=== PATIENT | female | born 1975 | race Asian ===

== ENCOUNTER → 2017-08-01 18:21 | Outpatient (CLI) | payer MEDICAID, SELFPAY ==
--- NOTE | 2017-08-01 13:45 | ASPS_PTH ---
PATIENT: RAJIV IVORY [facility] U#:[id number] AGE/SX: 49/F ROOM: RE08/01/[address]: Dr. Bronson Palacios MD : 1975 BED: DIS: SPEC #: [id number] RECD: 08/02/17 10:56 STATUS: ROBYN REShayna #: [id number] SIENA: 08/01/17 13:[address]: Bronson Palacios DEPT: CYTOLOGY RECD BY: Mark Givens ENTERED: 08/02/17 10:56 SP TYPE: ASPIRATION OTHR DR: Radha Mack, [employer] LEAD-C Tissues: Thyroid gland, NOS Procedures: Pap Stain (control) Special Stain Group II Cytology Other HEADER OPERATION: Ultrasound-guided fine needle aspiration left thyroid PRE-OP DIAGNOSIS: Multinodular goiter E04.2 TISSUE SUBMITTED: Fine needle aspiration left thyroid (12 slides) DIAGNOSIS CYTOLOGY Left thyroid nodule, ultrasound-guided FNA (smears): Malignant cells present 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 The specimen is adequate for evaluation. SJ:rg 08/03/17 COMMENT Correlation with clinical, radiologic findings and appropriate follow up are necessary. CYTOLOGY STUDY Slides are reviewed. CYTOLOGY GROSS Received are 12 smears labeled with the patient's name and designated per the requisition as left thyroid. Submitted for staining. / 08/02/17 TC:0 CPT: 92619
== END ==
PROVIDERS: Visit Provider Surgery
DX: E04.2 Nontoxic multinodular goiter (principal)
CPT/HCPCS: 88161; 88313

== ENCOUNTER 2017-08-22 10:27 | Day surgery (SDC) | payer MEDICAID, SELFPAY ==
[2017-08-22] VITALS (8 sets, daily range): BP systolic 114–148; BP diastolic 80–90; PULSE 64–92; RESP 14–18; TEMP 36.1–36.9; O2SAT 98–100; BMI 23.4
--- NOTE | 2017-08-22 | THYROID_PTH ---
PATIENT: RAJIV IVORY LOC: [facility] U#:[id number] AGE/SX: 42/F ROOM: RE08/22/[address]: Dr. Bronson Palacios MD : 1975 BED: DIS: 08/23/2017 SPEC #: [id number] RECD: 08/22/17 14:29 STATUS: ROBYN SURAJ #: [id number] SIENA: 08/22/17 00:[address]: Bronson Palacios DEPT: SURGICAL PATHOLOGY RECD BY: Mark Givens ENTERED: 08/22/17 14:29 SP TYPE: THYROID OTHR DR: Radha Mack, TRANSMISSION SPECIALIST-C Tissues: Thyroid gland, NOS Procedures: Surgery Specimen Level V HEADER OPERATION: Total thyroidectomy PRE-OP DIAGNOSIS: Papillary thyroid carcinoma TISSUE SUBMITTED: Thyroid, suture in left lobe MICROSCOPIC DIAGNOSIS Thyroid, thyroidectomy: Papillary thyroid carcinoma. See cancer checklist below. AM:ras 08/24/17 COMMENT THYROID CANCER SUMMARY: Procedure ? total thyroidectomy Specimen integrity - intact Specimen size ? right lobe 4.5 x 2 x 1 cm, left lobe 3.6 x 1.6 x 0.9, isthmus 2 x 0.5 x 0.5 cm Specimen weight ? 99 gm Tumor focality ? multifocal (left lobe and isthmus and right lobe) Dominant tumor: Tumor laterality - bilateral Tumor size ? largest tumor 1.5 x 1 x 0.5 cm, smaller tumor 3 x 2 x 2 mm Histologic type ? papillary carcinoma Variant - classical Architecture - follicular Cytomorphology - classical Margins ? uninvolved by carcinoma Largest tumor is present at <1 mm from its closest (posterior) margin of excision. Smaller tumor is located <1 mm from its closest (anterior) margin of excision. Tumor capsule - none Tumor capsular invasion ? not applicable Lymph-Vascular invasion ? not identified Extrathyroidal extension ? not identified Lymph nodes ? 2 out of 2 lymph nodes negative for metastatic carcinoma PATHOLOGIC STAGE: pT1b N0 Mx The above summary is in compliance with [employer] (CAP) Cancer Protocols Checklist and [place] [employer] on Cancer (AJCC), Staging Manual, 8th Ed. Two foci of papillary thyroid carcinoma with classical cytomorphology and follicular architecture are present. The larger tumor is present in the isthmus and extends into the left lobe. The smaller tumor measures 3 mm and is present in the right lobe. Case has been reviewed in consultation with Dr. Manriquez who concurs with the above diagnosis. IDC:SJ MICROSCOPIC DESCRIPTION Slides are reviewed. GROSS DESCRIPTION Received in fixative is one container labeled with the patient's name and designated thyroid, suture in left lobe. The specimen consists of a total thyroidectomy specimen weighing 9 gm. No external parathyroid tissue is identified. The specimen is oriented with suture in left lobe. The isthmus appears to be partly disrupted. The right lobe measures 4.5 x 2 x 1 cm and the left lobe measures 3.6 x 1.6 x 0.9 cm and the isthmus measures 2 x 0.5 x 0.5 cm. The specimen is inked as follows: posterior surface, right lobe, left lobe and isthmus ? black, anterior surface, right lobe ? blue, anterior surface, left lobe ? green and isthmus, anterior surface isthmus ? yellow. Sections of the isthmus reveal a maynard, solid nodule measuring 1.5 x 1 x 0.5 cm with solid nodule also extending into the lower portion of the left lobe. Sections of the rest of the left lobe do not reveal any mass lesion. Sections of the right lobe reveal a maynard, solid nodule in the lower portion of the lobe measuring 0.3 cm in greatest dimension. The entire specimen is submitted in ten cassettes as follows: 1 & 2 ? isthmus, 3-5 ? left lobe (3 containing most superior portion and 5 containing most inferior portion), 6-10 ? right lobe (6 containing most superior portion and 10 containing most inferior portion including one small nodule). / INDY:ras 08/23/17 TC:0 [facility]: [id number]
[2017-08-22 10:54] LABS: Internal QC Validated? YES +Cl - CLEAR BKGD; Pregnancy, Urine Negative Negative
[2017-08-22] MEDS: Cefazolin 2 GM in 0.9% Normal Saline 100 ML IV (12:20)
--- NOTE | 2017-08-22 13:28 | PCM.OPRPT ---
Problem List (1) Papillary thyroid carcinoma Status: Acute Report of Operation Date of Procedure: 08/22/17 Pre-Operative Diagnosis: c73 papillary thyroid cancer Post-Operative Diagnosis: Same Surgery/Procedure Performed:: [id number] total thyroidectomy with limited central node dissection Type of Anesthesia:: General Anesthesiologist: Bhavik Sanchez Specimen's removed: Total thyroid with central lymph nodes Estimated Blood Loss (mL): 25 cc Description of Procedure: Patient was brought into the operating room. Placed in the supine position. Under excellent general endotracheal intubation towel was placed underneath the shoulder blades and the neck was extended. The neck was then sterilely prepped and draped in the usual fashion. Exparel was injected into the neck in a cervical incision was made. Subplatysmal flaps were created with use of electrocautery. Gelpi retractor was placed inside the wound. Midline strap muscles were then opened and started on the right side detaching the strap muscles off of the thyroid gland itself I started inferiorly and went to the inferior pole vessels took these down with a harmonic dissector went to the middle thyroidal vein and took this down with a harmonic dissector and then spent quite a bit of dissecting up in the superior pole vessels this did take quite a bit of time to remove them with the harmonic dissector throughout this dissection I was able to identify the superior and inferior parathyroid glands as well as the recurrent laryngeal nerve I dissected the soft use a harmonic dissector to take the gland off of Hughes's ligament and then rotated the gland from lateral to medial standpoint off of the trachea to the left side. In similar fashion I went to the inferior pole vessels took these down with harmonic dissector and the process identifying the inferior parathyroid glands and then went superiorly and took out to lymph nodes from the central compartment and then went to the superior pole vessels and took these down with a harmonic dissector without difficulty I rotated the gland from lateral medial standpoint identified in the middle thyroidal vein and took this down with harmonic dissector and then finally rotated the gland off of Hughes's ligament this process I did not identify the recurrent laryngeal nerve inspected the gland nothing look like parathyroid tissue and marked the gland with a single suture in the right thyroid lobe. I inspected both thyroid beds as well as the middle compartment I did not see any other tissue that looked like thyroidal or lymphatic in nature I placed 2 pieces of Surgicel into the wound. These went on both sides of the thyroid bed had excellent hemostasis midline strap muscles were brought together with a 2-0 Vicryl. Rest of the Exparel was injected subcutaneously. Suboptimal flaps were brought together with a 3-0 Vicryl running 4-0 Monocryl on the skin and Dermabond was applied sterile dressings were applied and the patient tolerated the procedure well. - Admit VTE Documentation VTE Present on Admission: No VTE Mechan Device Prophylaxis: SCD's VTE Pharm Prophylaxis ordered?: No Reason prophylaxis not ordered:: Treatment Not Indicated
[2017-08-22] MEDS: BUPIVACAINE LIPOSOME/PF 20 ML VIAL OPERA.SITE (13:29)
[2017-08-22] MEDS: oxyCODONE 5 MG Tablet PO ×2 (15:17→21:01)
[2017-08-22] MEDS: Ondansetron 4 MG/2 ML Vial IV (16:19)
[2017-08-22 16:55] LABS: Calcium,Total 8.1 mg/dL (8.5-10.1)
[2017-08-22] MEDS: Calcium Carbonate 500 MG Tablet 1000 MG PO (17:55)
[2017-08-22] MEDS: HYDROmorphone 1 MG/ML Syringe IV (18:03)
[2017-08-23] MEDS: Lactated Ringers 1,000 ML 75 ML IV (01:01)
[2017-08-23 02:00] VITALS: BP 124/75; PULSE 84; RESP 16; TEMP 36.5; O2SAT 99
[2017-08-23] MEDS: Levothyroxine 100 MCG Tablet PO (06:03)
[2017-08-23] MEDS: oxyCODONE 5 MG Tablet PO ×2 (06:03→10:21)
[2017-08-23 06:49] LABS: Calcium,Total 8.9 mg/dL (8.5-10.1)
--- NOTE | 2017-08-23 07:21 | PCM.DC.GS ---
Discharge Diet: Light diet - advance as tolerated Discharge Activity: May Not Drive - No driving for 1 week or while taking narcotic pain meds. Lifting Restrictions: 10 pounds Call your doctor if your incision/area has: Continuous Slow Oozing, Sudden Increased Bleeding, Increased Pain/ Swelling, Increased Redness, Foul Smelling Discharge, Swelling at the incision site Suture Line Care: Avoid Pulling/Pushing, Avoid Pinching/Bending Cleanse incision/area with: Soap & Water Additional Instructions: Start to take levothyroxine 1 tablet daily. You will need to take this tablet 1 hour prior to eating, drinking and other medications Your TSH will be rechecked in 6 weeks from the surgery Your calcium level today was 8.9 (normal range) You will also start to take TUMS 2 tablets twice a day for 14 days I will also have you on Rocaltrol 1 tablet daily for 14 days The TUMs and Rocaltrol will need to be taken at least an hour away from the levothyroxine Allergies/Adverse Reactions: Allergies No Known Allergies Allergy (Verified 08/15/17 08:32) Medications to take at Discharge Multivit with Calcium,Iron,Min [Multiple Vitamins For Women] 1 each PO DAILY 08/15/17 Oxycodone HCl/Acetaminophen [Percocet 5/325] 1 - 2 tab PO Q4H PRN PRN 4 Days #30 tab 08/22/17 Calcitriol [Rocaltrol] 0.25 mcg PO DAILY #14 cap 08/23/17 Levothyroxine [Synthroid] 100 mcg PO DAILY@0600 #30 tab 08/23/17 The following prescriptions were given: Oxycodone HCl/Acetaminophen [Percocet 5/325] 1 - 2 tab PO Q4H PRN PRN 4 Days #30 tab PRN Reason: Pain Calcitriol [Rocaltrol] 0.25 mcg PO DAILY #14 cap Levothyroxine [Synthroid] 100 mcg PO DAILY@0600 #30 tab Primary Care Physician: Radha Mack NP-C [Primary Care Provider] - Please Follow Up With: Bronson Palacios MD - [phone] When: 10 days Proposed Discharge Date: 08/23/17
[2017-08-23 07:25] VITALS: BP 117/77; PULSE 84; RESP 18; TEMP 36.7; O2SAT 95
--- NOTE | 2017-08-23 07:26 | DCINST_ITS ---
Discharge Diet: Light diet - advance as tolerated Discharge Activity: May Not Drive - No driving for 1 week or while taking narcotic pain meds. Lifting Restrictions: 10 pounds Call your doctor if your incision/area has: Continuous Slow Oozing, Sudden Increased Bleeding, Increased Pain/ Swelling, Increased Redness, Foul Smelling Discharge, Swelling at the incision site Suture Line Care: Avoid Pulling/Pushing, Avoid Pinching/Bending Cleanse incision/area with: Soap & Water Additional Instructions: Start to take levothyroxine 1 tablet daily. You will need to take this tablet 1 hour prior to eating, drinking and other medications Your TSH will be rechecked in 6 weeks from the surgery Your calcium level today was 8.9 (normal range) You will also start to take TUMS 2 tablets twice a day for 14 days I will also have you on Rocaltrol 1 tablet daily for 14 days The TUMs and Rocaltrol will need to be taken at least an hour away from the levothyroxine Allergies/Adverse Reactions: Allergies No Known Allergies Allergy (Verified 08/15/17 08:32) Medications to take at Discharge Multivit with Calcium,Iron,Min [Multiple Vitamins For Women] 1 each PO DAILY 12/26 Oxycodone HCl/Acetaminophen [Percocet 5/325] 1 - 2 tab PO Q4H PRN PRN 4 Days # 30 tab 08/22/17 Calcitriol [Rocaltrol] 0.25 mcg PO DAILY #14 cap 08/23/17 Levothyroxine [Synthroid] 100 mcg PO DAILY@0600 #30 tab 08/23/17 The following prescriptions were given: Oxycodone HCl/Acetaminophen [Percocet 5/325] 1 - 2 tab PO Q4H PRN PRN 4 Days # 30 tab PRN Reason: Pain Calcitriol [Rocaltrol] 0.25 mcg PO DAILY #14 cap Levothyroxine [Synthroid] 100 mcg PO DAILY@0600 #30 tab Primary Care Physician: Radha Mack NP-C [Primary Care Provider] - Please Follow Up With: Bronson Palacios MD - [phone] When: 10 days Proposed Discharge Date: 08/23/17
--- NOTE | 2017-08-23 07:26 | PCM.PN.SRG ---
Patient Problems: Active and Suspected Problems (Last Reviewed 08/08/17 @ 13:55 by Bronson Palacios MD) Papillary thyroid carcinoma (Acute) Subjective: Patient evaluated resting comfortably in bed. Patient notes sore throat. She notes minimal discomfort at the incision site. No perioral numbness/tingling. She denies nausea, vomiting. Her pain well controlled. - Physical Exam Neck: Supple, No JVD, Negative Carotid Bruits, - - Anterior neck incision- c/d/i. No erythema or infection noted. Vital Signs Temp Pulse Resp BP Pulse Ox 97.7 F L 84 16 124/75 H 99 08/23/17 02:00 08/23/17 02:00 08/23/17 02:00 08/23/17 02:00 08/23/17 02:00 Oxygen Delivery Method Room Air Weight: 119 lb 14.903 oz Body Mass Index (BMI) 23.4 Intake and Output for Last 24 Hours 08/21/17 08/22/17 08/23/17 23:59 23:59 23:59 Intake Total 1877 / 1877 1150 / 1150 Output Total 300 / 300 1000 / 1000 Balance 1577 / 1577 150 / 150 Laboratory Tests Past 24 Hrs 08/22/17 08/22/17 08/22/17 10:35 16:10 21:30 Calcium 8.1 L 8.0 L Urine Test Negative 08/23/17:18 Calcium 8.9 Urine Test Assessment/Plan Active and Suspected Problems (Last Reviewed 08/08/17 @ 13:55 by Bronson Palacios MD) Papillary thyroid carcinoma (Acute) I am following this patient in conjunction with Dr. Palacios S/p Total thyroidectomy Calcium level reviewed. Ready for discharge
--- NOTE | 2017-08-23 07:29 | PN.SURG_ITS ---
Patient Problems: Active and Suspected Problems (Last Reviewed 08/08/17 @ 13:55 by Bronson Palacios MD) Papillary thyroid carcinoma (Acute) Subjective: Patient evaluated resting comfortably in bed. Patient notes sore throat. She notes minimal discomfort at the incision site. No perioral numbness/tingling. She denies nausea, vomiting. Her pain well controlled. - Physical Exam Neck: Supple, No JVD, Negative Carotid Bruits, - - Anterior neck incision- c/d/ i. No erythema or infection noted. Vital Signs Temp Pulse Resp BP Pulse Ox 97.7 F L 84 16 124/75 H 99 08/23/17 02:00 08/23/17 02:00 08/23/17 02:00 08/23/17 02:00 08/23/17 02:00 Oxygen Delivery Method Room Air Weight: 119 lb 14.903 oz Body Mass Index (BMI) 23.4 Intake and Output for Last 24 Hours 08/21/17 08/22/17 08/23/17 23:59 23:59 23:59 Intake Total 1877 / 1877 1150 / 1150 Output Total 300 / 300 1000 / 1000 Balance 1577 / 1577 150 / 150 Laboratory Tests Past 24 Hrs 08/22/17 08/22/17 08/22/17 10:35 16:10 21:30 Calcium 8.1 L 8.0 L Urine Test Negative 08/23/17:18 Calcium 8.9 Urine Test Assessment/Plan Active and Suspected Problems (Last Reviewed 08/08/17 @ 13:55 by Bronson Palacios MD) Papillary thyroid carcinoma (Acute) I am following this patient in conjunction with Dr. Palacios S/p Total thyroidectomy Calcium level reviewed. Ready for discharge
[2017-08-23] MEDS: Calcium Carbonate 500 MG Tablet 1000 MG PO (07:38)
== END 2017-08-23 10:52 | disposition home or self-care (01) ==
LOC: SDC 10:28 → AC 10:30 → MS3 13:06
PROVIDERS: Anesthesiology; Family Provider Nurse Practitioner Family; PCP Nurse Practitioner Family; Visit Provider Surgery
PROC: (CPT 60252; principal; 2017-08-22 12:15)
DX: C73 Malignant neoplasm of thyroid gland (principal)
CPT/HCPCS: 00320; 60252; 36415; 81025; 82310; 88307; J7120; J2405

== ENCOUNTER → 2019-04-18 12:46 | Outpatient (CLI) | payer MEDICAID, SELFPAY ==
--- NOTE | 2019-04-18 12:48 | BI_ITS ---
MAMMOGRAPHY - BILATERAL SCREENING REASON FOR EXAM: Female, 43 years old. Routine annual screening examination. PERTINENT HISTORY: Non-contributory. TECHNIQUE: Digital bilateral breast tyler (3D mammographic acquisition) in the CC and MLO projections. 2-D mediolateral oblique (MLO) and craniocaudad (CC) views of both breasts were obtained. CAD: Full Field Digital Mammography with Computer Added Detection was performed. COMPARISON: None. Baseline examination. FINDINGS: Breast Composition: The breasts are heterogeneously dense, which may obscure small masses. There are no dominant masses or suspicious calcifications. No other significant abnormalities are identified. BI/SCREENING MAMM (CAD), BILAT IMPRESSION: Negative screening mammogram. Yearly followup mammogram recommended. (A) ASSESSMENT CATEGORY: BIRADS Category 1: Negative. A letter regarding these results will be sent to the patient by the facility within 30 days. Approximately 10% of breast cancers are not detected by mammography. A normal mammogram should not delay biopsy of a clinically suspicious abnormality. [id number] Electronically Signed: Chito Mcdonald, at 14:21 EST , Service support ,
== END ==
DX: Z12.31 Encounter for screening mammogram for malignant neoplasm of breast (principal)
CPT/HCPCS: 77063; 77067

== ENCOUNTER → 2020-10-05 08:27 | Outpatient (CLI) | payer MEDICAID, SELFPAY ==
[2020-10-05 10:12] LABS: Absolute Lymphocyte Count 3.05 X10^3/uL (0.83-4.51); Absolute Neutrophil Count 2.8 X10^3/uL (2.0-7.7); Basophil# 0.04 X10^3/uL; Basophil% 0.6 % (0-1); Eosinophil# 0.16 X10^3/uL; Eosinophils% 2.4 % (0-5); Hemoglobin 13.6 g/dL (12.0-15.0); Lymphocyte # 3.05 X10^3/ul (0.83-4.51); Lymphocyte % 46.5 % (19-41); Mean Corp Hgb Conc 31.6 g/dL (32-36); Mean Corpuscular Hgb 26.3 pg (27.0-32.0); Monocyte% 7.6 % (0-10); NRBC Flagged by Analyzer 0 % (0-5); Neutrophil % 42.7 % (47-70); Platelet Count 312 K/mm3 (150-450); RBC Distribution Width CV 12.4 % (11.6-14.6); RBC Distribution Width SD 37.8 fl (35.1-43.9); Red Blood Count 5.18 M/mm3 (4.2-5.4); White Blood Count 6.6 K/mm3 (4.4-11.0)
== END ==
PROVIDERS: PCP Internal Medicine Infectious Disease; Referring Provider Internal Medicine Infectious Disease; Visit Provider Internal Medicine Infectious Disease
DX: D64.9 Anemia, unspecified (principal)
CPT/HCPCS: 36415; 85025

== ENCOUNTER → 2020-11-17 15:16 | Outpatient (CLI) | payer MEDICAID, SELFPAY ==
--- NOTE | 2020-11-17 15:19 | BI_ITS ---
MAMMOGRAPHY - BILATERAL SCREENING REASON FOR EXAM: Female, 45 years old. Routine annual screening examination. PERTINENT HISTORY: Non-contributory. TECHNIQUE: Digital bilateral breast tyler (3D mammographic acquisition) in the CC and MLO projections. 2-D mediolateral oblique (MLO) and craniocaudad (CC) views of both breasts were obtained. CAD: Full Field Digital Mammography with Computer Added Detection was performed. COMPARISON: Comparison is made with prior study dated 04/18/2019. FINDINGS: Breast Composition: The breasts are heterogeneously dense, which may obscure small masses. There are no dominant masses or suspicious calcifications. No other significant abnormalities are identified. There has been no significant change since the prior study. BI/SCREENING MAMM (CAD), BILAT IMPRESSION: Stable bilateral screening mammogram. Yearly follow-up mammogram recommended. (A) ASSESSMENT CATEGORY: BIRADS Category 1: Negative. A letter regarding these results will be sent to the patient by the facility within 30 days. Approximately 10% of breast cancers are not detected by mammography. A normal mammogram should not delay biopsy of a clinically suspicious abnormality. [id number] Electronically Signed: Chito Mcdonald MD at 8:47 EDT , Service support ,
== END ==
PROVIDERS: PCP Family Medicine; Referring Provider Family Medicine; Visit Provider Family Medicine
DX: Z12.31 Encounter for screening mammogram for malignant neoplasm of breast (principal)
CPT/HCPCS: 77067

== ENCOUNTER → 2020-12-03 | Outpatient (CLI) | payer MEDICAID, SELFPAY ==
[2017-08-22 15:00] VITALS: BMI 23.4
[2020-12-14 20:37] LABS: HPV Reflexed? NOT INDICATED
== END | disposition home or self-care (01) ==
PROVIDERS: PCP Family Medicine; Referring Provider Family Medicine; Visit Provider Registered Nurse
DX: Z01.419 Encounter for gynecological examination (general) (routine) without abnormal findings (principal)
CPT/HCPCS: 88175; G0145

== ENCOUNTER → 2021-12-30 | Outpatient (CLI) | payer MEDICAID, SELFPAY ==
--- NOTE | 2021-12-30 10:20 | BI_ITS ---
MAMMOGRAPHY - BILATERAL SCREENING REASON FOR EXAM: Female, 46 years old. Routine annual screening examination. PERTINENT HISTORY: Non-contributory. TECHNIQUE: Digital bilateral breast tyler (3D mammographic acquisition) in the CC and MLO projections. 2-D mediolateral oblique (MLO) and craniocaudad (CC) views of both breasts were obtained. CAD: Full Field Digital Mammography with Computer Added Detection was performed. COMPARISON: Comparison is made with prior study dated 11/17/2020 and 04/18/2019. FINDINGS: Breast Composition: The breasts are heterogeneously dense, which may obscure small masses. There are no dominant masses or suspicious calcifications. No other significant abnormalities are identified. There has been no significant change since the prior study. BI/SCREENING MAMM (CAD), BILAT IMPRESSION: Stable bilateral screening mammogram. Yearly follow-up mammogram recommended. (A) ASSESSMENT CATEGORY: BIRADS Category 1: Negative. A letter regarding these results will be sent to the patient by the facility within 30 days. Approximately 10% of breast cancers are not detected by mammography. A normal mammogram should not delay biopsy of a clinically suspicious abnormality. [id number] Electronically Signed: Chito Mcdonald MD at 11:09 EDT ,
== END | disposition home or self-care (01) ==
LOC: OPBI 10:18
PROVIDERS: PCP Family Medicine; Referring Provider Nurse Practitioner Family; Visit Provider Nurse Practitioner Family
DX: Z12.31 Encounter for screening mammogram for malignant neoplasm of breast (principal)
CPT/HCPCS: 77067

== ENCOUNTER → 2022-12-22 | Outpatient (CLI) | payer MEDICAID, SELFPAY ==
[2022-12-22 10:28] LABS: Absolute Lymphocyte Count 3.45 X10^3/uL (0.83-4.51); Absolute Neutrophil Count 3.4 X10^3/uL (2.0-7.7); Basophil# 0.03 X10^3/uL; Basophil% 0.4 % (0-1); Eosinophil# 0.16 X10^3/uL; Eosinophils% 2.1 % (0-5); Hematocrit 44.3 % (37-47); Hemoglobin 13.8 g/dL (12.0-15.0); Lymphocyte # 3.45 X10^3/ul (0.83-4.51); Lymphocyte % 44.7 % (19-41); Mean Corp Hgb Conc 31.2 g/dL (32-36); Mean Corpuscular Hgb 26.1 pg (27.0-32.0); Mean Corpuscular Volume 83.9 fL (81-99); Mean Platelet Vol. 10.3 fl (6.2-12.0); Monocyte# 0.64 X10^3/uL; Monocyte% 8.3 % (0-10); NRBC Flagged by Analyzer 0 % (0-5); Neutrophil % 44.1 % (47-70); Platelet Count 278 K/mm3 (150-450); RBC Distribution Width CV 12.8 % (11.6-14.6); Red Blood Count 5.28 M/mm3 (4.2-5.4); White Blood Count 7.7 K/mm3 (4.4-11.0)
[2022-12-22 11:12] LABS: ALB/GLOB Ratio 0.8 RATIO (0.9-2.4); AST(SGOT) 25 U/L (15-37); Alanine Aminotransfer ALT/SGPT 16 U/L (13-56); Albumin, Serum 3.3 g/dL (3.2-5.0); Alkaline Phosphatase 84 U/L (45-117); Anion Gap 6 (5-15); BUN 13 mg/dL (7-18); BUN/Creat Ratio 17.3 RATIO (10-20); Calcium,Total 8.6 mg/dL (8.5-10.1); Chloride 108 mmol/L (98-107); Cholesterol 131 mg/dL (200); Creatinine, Serum 0.75 mg/dL (0.55-1.02); EST Glomerular Filtration Rate 87 mL/min (>60); Est Glom Filt Rate - Afr Amer 106 mL/min (>60); Free T3 2.7 pg/mL (2.18-3.98); Glucose 92 mg/dL (74-106); High Density Lipoprotein 39 mg/dL; Protein, Total 7.3 g/dL (6.4-8.2); Sodium Level 138 mmol/L (136-145); T4 Free Direct 1.27 ng/dL (0.76-1.46); Thyroid Stim Hormone (TSH) 0.07 uIU/mL (0.358-3.74); Triglycerides 130 mg/dL; Very Low Density Lipoprotein 26 mg/dL (5-40)
[2022-12-26 16:10] LABS: QNTFERON TB Mitogen Value > 10.00 IU/mL (.); QNTFERON TB Nil Value 0.23 IU/mL (.); QNTFERON TB1+ Ag Value 0.49 IU/mL (.); QNTFERON TB2+ Ag Value 0.33 IU/mL (.); QNTIFERON TB Positive Criteria Negative (Negative)
[2022-12-28 15:08] LABS: Thyroglobulin Antibody < 1.0 IU/mL (0.0-0.9); Thyroid Peroxidase AB 19 IU/mL (0-34)
== END | disposition home or self-care (01) ==
PROVIDERS: PCP Family Medicine; Visit Provider Family Medicine
DX: Z13.220 Encounter for screening for lipoid disorders (principal); E55.9 Vitamin D deficiency, unspecified; E03.9 Hypothyroidism, unspecified; R61 Generalized hyperhidrosis
CPT/HCPCS: 84432; 36415; 80053; 80061; 82306; 84439; 84443; 84481; 85025; 86376; 86480; 86800

== ENCOUNTER → 2023-01-01 | Outpatient (CLI) | payer MEDICAID, SELFPAY ==
--- NOTE | 2023-01-01 10:06 | BI_ITS ---
MAMMOGRAPHY - BILATERAL SCREENING REASON FOR EXAM: Female, 47 years old. Routine annual screening examination. PERTINENT HISTORY: Non-contributory. TECHNIQUE: Digital bilateral breast sandra (3D mammographic acquisition) in the CC and MLO projections. 2-D mediolateral oblique (MLO) and craniocaudad (CC) views of both breasts were obtained. CAD: Full Field Digital Mammography with Computer Added Detection was performed. COMPARISON: Comparison is made with prior study dated December 30, 2021 and November 17, 2020. FINDINGS: Breast Composition: The breasts are heterogeneously dense, which may obscure small masses. There are no dominant masses or suspicious calcifications. No other significant abnormalities are identified. There has been no significant change since the prior study. BI/SCRN MAMM (CAD)W/SANDRA BILAT IMPRESSION: Stable bilateral screening mammogram. Yearly follow-up mammogram recommended. (A) ASSESSMENT CATEGORY: BIRADS Category 1: Negative. A letter regarding these results will be sent to the patient by the facility within 30 days. Approximately 10% of breast cancers are not detected by mammography. A normal mammogram should not delay biopsy of a clinically suspicious abnormality. [id number] Electronically Signed: Chito Mcdonald MD at 11:17 EDT ,
== END | disposition home or self-care (01) ==
LOC: OPBI 10:05
PROVIDERS: PCP Family Medicine; Referring Provider Family Medicine; Visit Provider Family Medicine
DX: Z12.31 Encounter for screening mammogram for malignant neoplasm of breast (principal)
CPT/HCPCS: 77063; 77067

== ENCOUNTER → 2023-12-21 | Outpatient (CLI) | payer MEDICAID, SELFPAY ==
[2023-12-21 17:36] LABS: Absolute Lymphocyte Count 3.25 X10^3/uL (0.83-4.51); Basophil# 0.05 X10^3/uL; Basophil% 0.6 % (0-1); Eosinophils% 1.2 % (0-5); Hematocrit 45.6 % (37-47); Hemoglobin 14.3 g/dL (12.0-15.0); Lymphocyte # 3.25 X10^3/ul (0.83-4.51); Lymphocyte % 39.9 % (19-41); Mean Corp Hgb Conc 31.4 g/dL (32-36); Mean Corpuscular Hgb 25.9 pg (27.0-32.0); Mean Corpuscular Volume 82.6 fL (81-99); Mean Platelet Vol. 10.4 fl (6.2-12.0); Monocyte# 0.68 X10^3/uL; Monocyte% 8.4 % (0-10); NRBC Flagged by Analyzer 0 % (0-5); Neutrophil # 4.04 X10^3/uL (2.7-7.7); Neutrophil % 49.7 % (47-70); Platelet Count 336 K/mm3 (150-450); RBC Distribution Width CV 13.6 % (11.6-14.6); RBC Distribution Width SD 40.8 fl (35.1-43.9); Red Blood Count 5.52 M/mm3 (4.2-5.4); White Blood Count 8.1 K/mm3 (4.4-11.0)
[2023-12-21 18:16] LABS: ALB/GLOB Ratio 0.8 RATIO (0.9-2.4); AST(SGOT) 12 U/L (15-37); Alanine Aminotransfer ALT/SGPT 9 U/L (13-56); Albumin, Serum 3.6 g/dL (3.2-5.0); Alkaline Phosphatase 84 U/L (45-117); Anion Gap 8 (5-15); BUN 14 mg/dL (7-18); BUN/Creat Ratio 16.4 RATIO (10-20); Calcium,Total 9.1 mg/dL (8.5-10.1); Chloride 105 mmol/L (98-107); Creatinine, Serum 0.85 mg/dL (0.55-1.02); EST Glomerular Filtration Rate 75 mL/min (>60); Est Glom Filt Rate - Afr Amer 91 mL/min (>60); Free T3 2.3 pg/mL (2.18-3.98); Globulin 4.4 g/dL (2.2-4.2); Glucose 120 mg/dL (74-106); Potassium 3.7 mmol/L (3.5-5.1); Sodium Level 136 mmol/L (136-145); T4 Free Direct 1.08 ng/dL (0.76-1.46); Thyroid Stim Hormone (TSH) 0.24 uIU/mL (0.358-3.74)
== END | disposition home or self-care (01) ==
LOC: MFPLAB 14:59
PROVIDERS: PCP Family Medicine; Visit Provider Family Medicine
DX: E03.9 Hypothyroidism, unspecified (principal); E55.9 Vitamin D deficiency, unspecified; R61 Generalized hyperhidrosis
CPT/HCPCS: 36415; 80053; 82306; 84439; 84443; 84481; 85025

== ENCOUNTER → 2024-01-08 | Outpatient (CLI) | payer MEDICAID, SELFPAY ==
--- NOTE | 2024-01-08 12:22 | BI_ITS ---
MAMMOGRAPHY - BILATERAL SCREENING REASON FOR EXAM: Female, 48 years old. Routine annual screening examination. PERTINENT HISTORY: Non-contributory. TECHNIQUE: Digital bilateral breast sandra (3D mammographic acquisition) in the CC and MLO projections. 2-D mediolateral oblique (MLO) and craniocaudad (CC) views of both breasts were obtained. CAD: Full Field Digital Mammography with Computer Added Detection was performed. COMPARISON: Comparison is made with prior study dated January 01, 2023 and December 30, 2021. FINDINGS: Breast Composition: The breasts are heterogeneously dense, which may obscure small masses. There are no dominant masses or suspicious calcifications. No other significant abnormalities are identified. There has been no significant change since the prior study. BI/SCRN MAMM (CAD)W/SANDRA BILAT IMPRESSION: Stable bilateral screening mammogram. Yearly follow-up mammogram recommended. (A) ASSESSMENT CATEGORY: BIRADS Category 1: Negative. A letter regarding these results will be sent to the patient by the facility within 30 days. Approximately 10% of breast cancers are not detected by mammography. A normal mammogram should not delay biopsy of a clinically suspicious abnormality. [id number] Electronically Signed: Chito Mcdonald MD at 13:28 EDT ,
== END | disposition home or self-care (01) ==
LOC: OPBI 12:20
PROVIDERS: PCP Family Medicine; Referring Provider Family Medicine; Visit Provider Family Medicine
DX: Z12.31 Encounter for screening mammogram for malignant neoplasm of breast (principal)
CPT/HCPCS: 77063; 77067